=== PATIENT | male | born 1980 | race Caucasian/White ===

== ENCOUNTER 2018-12-10 16:17 | Emergency (ER) | payer MEDICAID ==
[~2018-12-10] VITALS: Ht 185.4 cm; Wt 84.0 kg
[2018-12-10] MEDS ORDERED: LEVETIRACETAM 500MG PREMIX 100 ML IV ONE (17:45)
[2018-12-10] MEDS ORDERED: SODIUM CHLORIDE 0.9% 500 ML IV ONE (18:15)
[2018-12-10 18:56] LABS: CHLORIDE 110 mEq/L (98-107)
[2018-12-10 18:57] LABS: BASOPHILS % 0.3 % (0.0-2.0); EOSINOPHILS % 2.3 % (0.0-5.0); HEMATOCRIT. 36.1 % (42.0-52.0); HEMOGLOBIN. 12.6 g/dL (14.0-18.0); LYMPHOCYTES % 27.5 % (20.0-50.0); MEAN CORPUSCULAR HEMOGLOBIN 31.9 pg (28.0-32.0); MEAN CORPUSCULAR VOLUME 91.2 fL (80.0-94.0); MEAN PLATELET VOLUME 8.8 fl (7.4-10.4); MONOCYTES % 12.2 % (2.0-8.0); NEUTROPHILS % 57.7 % (40.0-76.0); PLATELET 165 x1000/uL (130-400); RED BLOOD CELL COUNT 3.95 mill/uL (4.7-6.1); RED CELL DISTRIBUTION WIDTH 14.2 % (11.6-14.6)
[2018-12-10 19:00] LABS: ETHANOL BLOOD < 10 mg/dL
[2018-12-10] MEDS ORDERED: OLANZAPINE 5MG TABLET ODT PO ONE (19:15)
[2018-12-10] MEDS ORDERED: CLONAZEPAM 1MG TABLET PO ONE (19:15)
[2018-12-10] MEDS ORDERED: DIVALPROEX SODIUM 250MG ER TABLET PO ONE (19:15)
[2018-12-10] MEDS ORDERED: DIVALPROEX SODIUM 500MG ER TABLET PO NR (20:00)
[2018-12-10 20:09] LABS: *AMPHETAMINES SCREEN URINE PRESUMTIVE POSITIVE (NEGATIVE); *BARBITURATES SCREEN URINE NEGATIVE (NEGATIVE); *BENZODIAZEPINES SCREEN URINE NEGATIVE (NEGATIVE); *COCAINE SCREEN URINE NEGATIVE (NEGATIVE)
[2018-12-10 20:10] LABS: CANNABINOID URINE SCREEN PRESUMTIVE POSITIVE (NEGATIVE); METHADONE URINE SCREEN NEGATIVE (NEGATIVE); OPIATES URINE SCREEN NEGATIVE (NEGATIVE); PHENCYCLIDINE URINE SCREEN NEGATIVE (NEGATIVE)
[2018-12-10] MEDS ORDERED: QUETIAPINE FUMARATE 50MG TABLET PO STA (22:11)
[2018-12-11] MEDS ORDERED: OLANZAPINE 5MG TABLET PO STA (12:31)
[2018-12-11] MEDS ORDERED: QUETIAPINE FUMARATE 50MG TABLET PO SCH ×2 (14:45→19:45)
[2018-12-11] MEDS ORDERED: CLONAZEPAM 1MG TABLET PO ONE (14:45)
[2018-12-11] MEDS ORDERED: DIVALPROEX SODIUM 250MG ER TABLET PO ONE (14:45)
[2018-12-11] MEDS ORDERED: LEVETIRACETAM 500MG TABLET PO SCH (17:00)
[2018-12-11] MEDS ORDERED: DIVALPROEX SODIUM 500MG ER TABLET PO SCH (19:00)
[2018-12-11] MEDS ORDERED: GABAPENTIN 100MG CAPSULE PO SCH (22:00)
[2018-12-11] MEDS: CLONAZEPAM 1MG TABLET PO SCH (22:00)
[2018-12-11] MEDS: GABAPENTIN 100MG CAPSULE PO SCH (22:00)
[2018-12-12] MEDS: GABAPENTIN 100MG CAPSULE PO SCH ×2 (06:00→14:00)
[2018-12-12] MEDS: CLONAZEPAM 1MG TABLET PO SCH ×2 (07:30→14:00)
[2018-12-12 18:00] VITALS: BP 123/76
== END 2018-12-12 18:00 | disposition home or self-care (01) ==
LOC: ER 16:17
DX: R56.9 Unspecified convulsions (principal); F29 Unspecified psychosis not due to a substance or known physiological condition; Z88.9 Allergy status to unspecified drugs, medicaments and biological substances; Z88.1 Allergy status to other antibiotic agents; Z88.2 Allergy status to sulfonamides
CPT/HCPCS: 36415; 80053; 80305; 80320; 82140; 85025; 99284; J1953; J7040; Z7610; G0480